=== PATIENT | female | born 1990 | race Caucasian/White ===

== ENCOUNTER 2019-02-27 07:59 | Inpatient (IN) | payer OTHER ==
[~2019-02-27] VITALS: Ht 157.5 cm; Wt 54.4 kg
[2019-02-27 08:27] VITALS: BMI 21.9
--- NOTE | 2019-02-27 08:27 | TRIAGE ---
OB Triage Datetime Report Generated by CPN: 02/27/2019 08:26 Datetime: 02/27/2019 08:15 Stage of : OB Triage Assessment Type: Triage Maternal Assessment Level of Consciousness: Fully Conscious DTR's/Clonus: DTRs 2+; No Clonus Headache: Denies Blurred Vision: No Respiratory Effort: Unlabored; Regular Rhythm; Equal Expansion Breath Sounds, Left: Clear and Equal Breath Sounds, Right: Clear and Equal Nausea/Vomiting: Denies RUQ Epigastric Pain: Denies Lower Extremities Edema: None Degree: None Upper Extremities Edema: None Degree: None Facial Edema: None Temperature Route: Oral Fall Risk Assessment History of Falling: (0) No Secondary Diagnosis: (0) No Ambulatory Aid: (0) Bedrest/Nurse Assist IV Therapy: (0) No Gait: (0) Normal/Bedrest/Immobile Mental Status: (0) Oriented to Own Ability Fall Score: 0 Fall Risk Score Definition: No Risk: No action required Labor Evaluation Monitor Mode: External Heart Rate Monitor Mode: External US Pain Assessment Pain Scale: 8 Pain Presence: Intermittent Pain Type: Cramping Pain Location: Abdomen Pain Goal: 0 Vaginal Exam Dilatation (cms): 6.0 Effacement (%): 100 Station: -2 Exam By: NICHOLASIE Datetime: 02/27/2019 08:14 Time of Arrival: 02/27/2019 07:53 EGA: 39.1 Arrived By: Ambulatory Arrived From: Home Chief Complaint: UC'S Movement: Present Contractions: Irregular Contractions: 1-5 Rupture of Membranes: Denies Vaginal Bleeding: None Vaginal Discharge: Denies Recent Sexual Intercouse: Denies Abdominal Trauma: Not Applicable Patient Complaints: Contractions Time Provider Notified: 02/27/2019 08:20 Provider Notified: DR. RENO Initial Plan: EFM, VE CALL MD Datetime: 02/27/2019 08:04 Presentation 'A': Cephalic
[2019-02-27] MEDS ORDERED: IBUPROFEN 600 MG TAB PO PRN (08:30)
[2019-02-27] MEDS ORDERED: METHYLERGONOVINE 0.2 MG INJ IM PRN (08:30)
[2019-02-27] MEDS ORDERED: AMPICILLIN 2 GM/NS (PMX) 100 ML IV ONE (08:30)
[2019-02-27] MEDS ORDERED: OXYTOCIN 30 UNITS/LR 500 ML IV PRN ×2 (08:30→10:30)
[2019-02-27] MEDS ORDERED: CARBOPROST 250 MCG INJ IM PRN ×2 (08:30→10:30)
[2019-02-27] MEDS ORDERED: OXYTOCIN 30 UNITS/LR 500 ML IV SCH (08:30)
[2019-02-27] MEDS ORDERED: BUTORPHANOL 2 MG INJ IV PRN (08:30)
[2019-02-27] MEDS ORDERED: LIDOCAINE 1% (MPF) 30 ML INJ INJ PRN (08:30)
[2019-02-27] MEDS ORDERED: MISOPROSTOL 200 MCG TAB PR PRN ×2 (08:30→10:30)
[2019-02-27] MEDS ORDERED: MINERAL OIL LIGHT 10 ML VIAL TOP ONE (08:30)
[2019-02-27 08:33] VITALS: Ht 157.5 cm; Wt 54.4 kg
[2019-02-27] MEDS ORDERED: LACTATED RINGER'S 1,000 ML IV SCH (08:56)
[2019-02-27] MEDS: LACTATED RINGER'S 1,000 ML IV SCH ×2 (09:13→16:34)
--- NOTE | 2019-02-27 10:25 | HP ---
Date/Time of Note Date/Time of Note DATE: 02/27/19 TIME: 10:24 OB - History Hx of Present Free Text/Dictation 28 Yo with IUP at 39.1 weeks with EDC 03/05/2019 reports in active labor. AROM was clear. Care: Good Care Ultrasounds: Normal mid trimester US Obstetrical Complications: None Medical Complications: None Past Family/Social History * Past Medical, Surgical, Family and Obstetric Histories reviewed from chart. OB Admission Exam Vital Signs Vital Signs Vital Signs Date Temp Pulse Resp B/P (MAP) Pulse Ox O2 O2 Flow FiO2 Time Delivery Rate 02/27/19 98.0 08:27 Physical Exam HEENT: WNL Heart: Rhythm Normal Lungs: Clear, Equal Abdomen: WNL Extremities: Normal Reflexes: Normal Cervical Dilatation: 10cm Last 72 hours Lab Results CBC & BMP 02/27/19 08:29 OB Assessment/Plan Reason for admission: active labor Plan: Expectant Management JELLY RENO MD Feb 27, 2019 10:25
--- NOTE | 2019-02-27 10:28 | LDN ---
Date/Time of Note Date/Time of Note DATE: 02/27/19 TIME: 10:26 Delivery Summary 28 Yo with IUP at 39.1 weeks with EDC 03/05/2019 s/p of viable male . After delivery of the head the rest of the body delivered easily. I did not apply excessive traction. Placenta delivered spontaneously and intact. evaluation of the placenta confirmed intact placenta. Uterus was firm with cervix closed on exam first degree perineal and left labial laceration was repaired in normal fashion. EBL 300 ml. APGARS 8/9 Meconium: none Episiotomy: No Perineal laceration: 1 Sponge & Needle done & correct: Yes All needle counts correct: Yes Any foreign bodies felt in the: No Delivery Information Sex Sex: male Apgars 1 Minute: 8 5 Minute: 9 Suctioning Nose & mouth suctioned at sara: No Delee suction performed: No Umbilical Cord Umbilical cord with: 3 Vessels Cord presentations: nuchal cord Nuchal cord present X: 1 Cord Blood was obtained: Yes Mother & Baby Disposition Disposition Mom & Baby to Maternity; Good: Yes JELLY RENO MD Feb 27, 2019 10:27
[2019-02-27] MEDS ORDERED: NA PHOSPHATE/BIPHOS 133 ML ENEMA PR PRN (10:30)
[2019-02-27] MEDS ORDERED: WITCH HAZEL/GLYCERIN PAD PR PRN (10:30)
[2019-02-27] MEDS ORDERED: BENZOCAINE 20% 56 ML SPRAY TOP PRN (10:30)
[2019-02-27] MEDS ORDERED: ONDANSETRON 4 MG TAB PO PRN (10:30)
[2019-02-27] MEDS ORDERED: MAGNESIUM HYDROXIDE 30ML CUP PO PRN (10:30)
[2019-02-27] MEDS ORDERED: ONDANSETRON 4 MG INJ IV PRN (10:30)
[2019-02-27] MEDS ORDERED: DIPHENHYDRAMINE 25 MG CAP PO PRN (10:30)
[2019-02-27] MEDS ORDERED: SENNA/DOCUSATE NA (8.6MG/50MG) TAB PO PRN (10:30)
[2019-02-27] MEDS ORDERED: LANOLIN HPA 1 PKT TOP PRN (10:30)
[2019-02-27] MEDS ORDERED: DIBUCAINE 1% 30 GM OINT TOP PRN (10:30)
[2019-02-27] MEDS ORDERED: HYDROCODONE/APAP (5/325) TAB PO PRN ×2 (10:30)
[2019-02-27] MEDS ORDERED: DIPHENHYDRAMINE 50 MG INJ IV PRN (10:30)
[2019-02-27] MEDS: OXYTOCIN 30 UNITS/LR 500 ML IV SCH ×2 (10:48→14:01)
[2019-02-27 12:00] VITALS: BP 137/87; PULSE 73; RESP 18
[2019-02-27] MEDS: IBUPROFEN 600 MG TAB PO SCH ×2 (12:00→18:25)
[2019-02-27] MEDS: AMPICILLIN 1 GM/NS (PMX) 50 ML IV SCH ×2 (12:30→16:30)
[2019-02-27 13:00] VITALS: BP 130/79; PULSE 79; RESP 18
[2019-02-27] MEDS: LACTATED RINGER'S 1,000 ML IV* SCH ×2 (16:00→18:22)
[2019-02-27 20:00] VITALS: BP 121/68; PULSE 82; RESP 18
[2019-02-27] MEDS: SENNA/DOCUSATE NA (8.6MG/50MG) TAB PO SCH (21:00)
[2019-02-28] MEDS: IBUPROFEN 600 MG TAB PO SCH ×5 (00:20→23:36)
[2019-02-28] MEDS: LACTATED RINGER'S 1,000 ML IV* SCH ×2 (02:22→22:38)
[2019-02-28 03:55] VITALS: BP 113/73; PULSE 78; RESP 18
[2019-02-28 07:30] VITALS: BP 103/82; PULSE 96; RESP 18
[2019-02-28] MEDS: SENNA/DOCUSATE NA (8.6MG/50MG) TAB PO SCH ×2 (08:36→20:44)
[2019-02-28 15:30] VITALS: BP 118/70; PULSE 67; RESP 16
[2019-02-28 20:05] VITALS: BP 112/66; PULSE 90; RESP 18
--- NOTE | 2019-02-28 23:20 | DS ---
Date/Time of Note Date/Time of Note DATE: 02/28/19 TIME: 23:19 Obstetrical Discharge Record Final Diagnosis Final Diagnosis: Term delivered Vaginal Delivery Obstetrical Delivery: Spontaneous Complications Augmentation: No Induction: No Rupture of Membranes: No Condition on Discharge Physical Assessment Voiding: Yes Bowel Movement: Yes Breast: Soft, non-tender, Filling Fundus: Firm Abdomen and Incision: soft, not tender Calf Tenderness: No Patient Condition: Good JELLY RENO MD Feb 28, 2019 23:20
[2019-03-01 02:35] VITALS: BP 110/64; PULSE 70; RESP 18
[2019-03-01] MEDS: LACTATED RINGER'S 1,000 ML IV* SCH ×2 (04:50→10:22)
[2019-03-01] MEDS: IBUPROFEN 600 MG TAB PO SCH ×2 (06:19→11:48)
[2019-03-01 08:00] VITALS: BP 115/68; PULSE 80; RESP 18
[2019-03-01] MEDS ORDERED: DIPHTH/TET/ACEL PERTUSS (ADULT) 0.5 ML VIAL IM* ONE (09:00)
[2019-03-01] MEDS ORDERED: VARICELLA VACCINE LIVE/PF 1,350 UNIT/0.5 ML ML SC* ONE (09:00)
[2019-03-01] MEDS ORDERED: MEASLES,MUMPS,RUBELLA VACCINE INJ SC* ONE (09:00)
[2019-03-01] MEDS: SENNA/DOCUSATE NA (8.6MG/50MG) TAB PO SCH (09:09)
--- NOTE | 2019-03-02 14:46 | DELSUM ---
Delivery Summary A-C Datetime Report Generated by CPN: 03/02/2019 14:46 DELIVERY PERSONNEL Resource Economist: Orel, Azra MATERNAL INFORMATION Delivery Anesthesia: Local Medications in Delivery: pitocin 30 units in LR 500 ml Delivery QBL (ml): 300 Placenta Cultured: No Maternal Complications: None LABOR SUMMARY EDC: 03/05/2019 00:00 No. Babies in Womb: 1 Attempted: No Labor Anesthesia: None LABOR INFORMATION Reason for Induction: Not Applicable Onset of Labor: 02/27/2019 03:00 Complete Dilatation: 02/27/2019 09:43 Oxytocin: N/A Group B Beta Strep: Positive Antibiotics # of Doses: ampicillin 2 gm Antibiotics Time of Last Dose: 02/27/2019 08:55 Steroids Given: None Reason Steroids Not Administered: Not Applicable MEMBRANES Membranes Rupture Method: Artificial Rupture of Membranes: 02/27/2019 09:06 Length of Rupture (hr): 0.87 Amniotic Fluid Color: Clear Amniotic Fluid Amount: Moderate Amniotic Fluid Odor: None STAGES OF LABOR Stage 1 hr: 6 Stage 1 min: 43 Stage 2 hr: 0 Stage 2 min: 15 Stage 3 hr: 0 Stage 3 min: 3 Total Time in Labor hr: 7 Total Time in Labor min: 1 VAGINAL DELIVERY Episiotomy: None Laceration Extension: First Degree Laceration Type: Perineal Other Laceration: left labial Laceration Repair: Yes Initial Vag Sponge Count: 10 Final Vag Sponge Count: 10 Initial Vag Sharps Count: 1 Final Vag Sharps Count: 2 Sponge Count Correct: Yes Sharps Count Correct: Yes Count Comment: 1 suture added BABY A INFORMATION Infant Delivery Date/Time: 02/27/2019 09:58 Method of Delivery: Vaginal Born in Route : No : N/A Forceps: N/A Vacuum Extraction: N/A Shoulder Dystocia : N/A SHOULDER DYSTOCIA BABY A Delivery Date/Time: 02/27/2019 09:58 PRESENTATION/POSITION BABY A Presentation: Cephalic Cephalic Presentation: Vertex Vertex Position: Left Occipital Anterior Breech Presentation: N/A PLACENTA INFORMATION BABY A Placenta Delivery Time : 02/27/2019 10:01 Placenta Method of Delivery: Spontaneous Placenta Status: Delivered SCORES BABY A Heart Rate 1 min: >100 bpm Resp Effort 1 min: Good Cry Reflex Irritability 1 min: Cough/Sneeze/Pulls Away Muscle Tone 1 min: Active Motion Color 1 min: Blue/Pale Resuscitation Effort 1 min: Tactile Stimulation SCORE 1 MIN: 8 Heart Rate 5 min: >100 bpm Resp Effort 5 min: Good Cry Reflex Irritability 5 min: Cough/Sneeze/Pulls Away Muscle Tone 5 min: Active Motion Color 5 min: Body [place], Extremit Blue Resuscitation Effort 5 min: Tactile Stimulation SCORE 5 MIN: 9 INFORMATION BABY A Gestational Age at Delivery: 39.1 Gestational Status: Full Term- 39- 40.6 Weeks Infant Outcome : Liveborn Infant Condition : Stable Sex: Male IDENTIFICATION/MEDS BABY A ID Band Number: [id number] ID Band Location: Right Leg; Left Leg Sensor Applied: Yes Sensor Number: [id number] Sensor Location : Cord Clamp Vitamin K Given : Not Given Erythromycin Given: Not Given WEIGHT/LENGTH BABY A Birthweight (gm): 2985 Infant Weight (lb): 6 Infant Weight (oz): 9 Length (in): 19.00 Infant Length (cm): 48.26 CORD INFORMATION BABY A No. Cord Vessels: 3 Nuchal Cord : N/A Nuchal Cord- Other: cord around body Cord Blood Taken: Yes Infant Suction: Mouth; Nose ASSESSMENT BABY A Complications: None Physical Findings at Delivery: Within Normal Limits Infant Respirations: Appears Normal Endbander/ALS Called : No Care By: Constanza Crockett RN Transferred To: Remains with Mother
== END 2019-03-01 14:45 | disposition home or self-care (01) | DRG 807 ==
LOC: OBT 07:59 → L-D 08:01 → OBT 08:05 → L-D 08:30 → PP1 12:00
PROVIDERS: ADMIT Specialist; ATTEND Specialist
PROC: 10E0XZZ Delivery of Products of Conception, External Approach (ICD-10-PCS; principal; 2019-02-27)
PROC: 0HQ9XZZ Repair Perineum Skin, External Approach (ICD-10-PCS; 2019-02-27)
DX: O69.81X0 Labor and delivery complicated by cord around neck, without compression, not applicable or unspecified (principal); O70.0 First degree perineal laceration during delivery; Z37.0 Single live birth; Z3A.39 39 weeks gestation of pregnancy
CPT/HCPCS: 85025; 85610; 85730; 86592; 86850; 86900; 86901; 87340; 90715; 90716; G0463; J0290; J2590; J7120